=== PATIENT | male | born 1985 | race Caucasian/White ===

== ENCOUNTER 2022-02-27 06:17 | Day surgery (SDC) | payer OTHER, SELFPAY ==
[2022-02-27 06:38] VITALS: BP 118/78; PULSE 75; RESP 16; TEMP 36.5; O2SAT 96; BMI 28.8
[2022-02-27] MEDS: ETHYL CHLORIDE 116 ML SPRAY 1 APPLIC TOPICAL (07:03)
[2022-02-27] MEDS: SODIUM CHLORIDE 0.9 % (FLUSH) 10 ML SYRINGE IVF (07:05)
[2022-02-27] MEDS: LACTATED RINGERS 1000 ML 1,000 ML 100 ML IV (07:05)
--- NOTE | 2022-02-27 09:13 | PM.GSPRC ---
Operative Note Date of procedure: 02/27/22 Type of Procedure: Excision intramuscular lipoma measuring 10 x 12 x 4 cm Procedure Description: After discussing the risks and benefits of the procedure, the patient signed informed consent.? The operative site was marked and the patient was brought to the operating room and placed on the operating table in supine position.? Care was taken to pad the patient's pressure points.?? The patient was then given sedation by anesthesia.?? The operative site was then prepped and draped in the usual sterile fashion.? A time-out was then performed. Local anesthetic was injected into the skin and subcutaneous tissues overlying the planned incision overlying the mass. Dissection was taken down into the subcutaneous space using cautery. The trapezius muscle was encountered. This appeared to be thinned out over the rubbery mass. I carefully incised the fascia sharply and used a right angle to spread the muscle fibers. The fatty mass was immediately noted. Using my finger I was able to freely bluntly dissect out the mass circumferentially within the muscle. A small bleeding vessel on the muscle fibers was controlled with suture ligation. There was a subcutaneous nerve appearing structure that ran on top of the muscle. This was spared throughout the procedure. The mass was quite large and appeared densely adherent at the lateral aspect over the shoulder joint and therefore I was able to deliver this from the incision medially to laterally. Once this was done, I then very carefully dissected, using a right angle, through the tissue at the lateral aspect which was adjacent to the AC joint to identify small capsular fibers that were adhering the mass. these were carefully divided. A small amount of fatty tissue approximately 1 cm, was left in place as it was densely adherent to the lateral shoulder/AC joint. The wound was examined for hemostasis which appeared excellent. However, because this was intramuscular, I did place Surgicel within the bed. 3-0 Vicryl was then used to reapproximate the muscle fibers which had been spread apart to facilitate the dissection. Three 0 Vicryl was then used to close the platysmal layer which had been divided at the anterior aspect of the incision. The dermis was closed with 3-0 Vicryl and 4-0 Monocryl was used to close the subcuticular layer in a running fashion. ? Sterile dressings were then applied. ? The patient was then woken and transported to the recovery area in stable condition. ? The patient tolerated the procedure well. Findings: Intramuscular fatty mass measuring up to 12 cm Anesthesia: MAC Surgeon: Debbie Lancaster MD Condition: stable Disposition: same day
[2022-02-27 09:15] VITALS: BP 107/77; PULSE 64; RESP 14; TEMP 36.6; O2SAT 97
--- NOTE | 2022-02-27 09:18 | W.ANESCHARGE ---
Anesthesia Charges Start Date/Time Anesthesia Start Date: 02/27/22 Anesthesia Start Time: 07:37 Stop Date/Time Anesthesia Stop Date: 02/27/22 Anesthesia Stop Time: 09:17 Summary Emergency: No
[2022-02-27 09:30] VITALS: BP 107/70; PULSE 62; RESP 16; O2SAT 98
[2022-02-27 09:47] VITALS: BP 114/77; PULSE 54; RESP 16; O2SAT 98
[2022-02-27 10:00] VITALS: BP 120/80; PULSE 70; RESP 16; O2SAT 98
[2022-02-27 10:16] VITALS: BP 122/85; PULSE 75; RESP 16; O2SAT 98
--- NOTE | 2022-02-27 10:53 | W.ANESCHARGE ---
Anesthesia Charges Start Date/Time Anesthesia Start Date: 02/27/22 Anesthesia Start Time: 07:37 Stop Date/Time Anesthesia Stop Date: 02/27/22 Anesthesia Stop Time: 09:17 Summary Emergency: No
== END 2022-02-27 11:05 | disposition home or self-care (01) ==
PROVIDERS: PCP Family Medicine; Visit Provider Surgery
PROC: (CPT 23073; principal; 2022-02-27 07:30)
DX: D17.22 Benign lipomatous neoplasm of skin and subcutaneous tissue of left arm (principal)
CPT/HCPCS: 23073; 00300; 00400; 88304; J1170; J2250; J2405; J2704; J3010; J7120; S0020

== ENCOUNTER 2022-07-21 11:08 | Outpatient (CLI) | payer OTHER, SELFPAY ==
[2022-07-21 12:44] LABS: Chloride* 107 mmol/L (96-114); Potassium* 4.7 mmol/L (3.6-5.1); Sodium* 144 mmol/L (135-149)
[2022-07-21 12:46] LABS: Creatinine* 0.8 mg/dL (0.5-1.5); Estimated Glomerular Filt Rate 116 ml/min
[2022-07-21 12:47] LABS: Blood Urea Nitrogen* 18 mg/dL (5-24); Calcium* 9.6 mg/dL (8.4-10.6); Carbon Dioxide* 28 mmol/L (20-32); Glucose* 78 mg/dL (60-115)
== END 2022-07-21 11:09 | disposition home or self-care (01) ==
LOC: NFLDREF 11:09
PROVIDERS: PCP Family Medicine; Visit Provider Family Medicine
DX: Z01.818 Encounter for other preprocedural examination (principal)
CPT/HCPCS: 80048

== ENCOUNTER 2022-07-25 06:20 | Day surgery (SDC) | payer OTHER, SELFPAY ==
[2022-07-25] VITALS (16 sets, daily range): BP systolic 119–140; BP diastolic 78–92; PULSE 82–105; RESP 16; TEMP 36.3–36.8; O2SAT 93–99; BMI 26.6
[2022-07-25] MEDS: LACTATED RINGERS 1000 ML 1,000 ML 100 ML IV ×2 (06:52→10:29)
[2022-07-25] MEDS: SODIUM CHLORIDE 0.9 % (FLUSH) 10 ML SYRINGE IVF (06:52)
[2022-07-25] MEDS: CEFAZOLIN 2 GM INJ IVP (08:05)
--- NOTE | 2022-07-25 08:45 | W.ANESCHARGE ---
Anesthesia Charges Start Date/Time Anesthesia Start Date: 07/25/22 Anesthesia Start Time: 07:49 Stop Date/Time Anesthesia Stop Date: 07/25/22 Anesthesia Stop Time: 10:52 Summary Emergency: No
[2022-07-25] MEDS: BUPIVACAINE 0.25% 30 ML INJECTION (10:29)
--- NOTE | 2022-07-25 10:39 | PM.GSPRC ---
Operative Note Date of procedure: 07/25/22 Type of Procedure: Laparoscopic left inguinal hernia. Procedure Description: After discussing the risks and benefits of the procedure, the patient signed informed consent.? The operative site was marked and the patient was brought to the operating room and placed on the operating table in supine position.? Care was taken to pad the patient's pressure points.?? The patient was then intubated by anesthesia.?? The operative site was then prepped and draped in the usual sterile fashion.? A time-out was then performed. A curvilinear incision was made below the umbilicus. Dissection was carried down to subcutaneous tissue until the anterior rectus fascia was encountered. This was incised off the midline. The rectus muscles were then retracted exposing the posterior fascia. A space maker port with a dissecting balloon was then introduced. The preperitoneal space was inflated under direct vision. The balloon was then removed and the preperitoneal space insufflated. On inspection there was evidence of a large peritoneal tear and air within the abdomen. The decision was made to then convert to a total abdominal peritoneal approach. Dissection continued on the left side. The peritoneum was partially dissected away from the anterior abdominal wall by the balloon dissection. A midline 5 mm port was placed within the preperitoneal space to help assist with dissection and an addition left lateral 5 mm port was placed under direct visualization. The peritoneum was then dissected down with blunt dissection away from the anterior abdominal wall. The inguinal canal cord structures were identified, as well as the hernia defect, consistent with an indirect. Dissection was carried medially and the pubic bone was identified and cleared. Once the peritoneum was completely dissected down a large Bard 3D mesh was used for the appropriate side. Three tacks were placed medially just above the pubic bone and a single tacked laterally to hold the mesh in place. Care was taken not to injure the epigastric vessels. The preperitoneal 5 mm port was then removed and repositioned within the abdomen on the right lateral side. A interlocking V stitch was used to intracorporeally suture the peritoneal defect. Once this was done the mesh was completely covered with the peritoneum. The ports were then removed under direct visualization. The anterior fascial defect was closed with an 0 Vicryl stitch. The umbilical incision was closed in layers with interrupted 3 0 Vicryl and running 4-0 Monocryl suture. The other incisions were closed with interrupted 4-0 Monocryl suture. Sterile dressings were then applied. The scrotum was examined to ensure that both testicles were down. Instrument sponge and needle counts were correct at the end of the case. Findings: Left indirect hernia. Anesthesia: GETA Surgeon: Tatianna Sandoval MD Estimated blood loss (mL): 15 Condition: stable Disposition: same day
--- NOTE | 2022-07-25 11:06 | W.ANESCHARGE ---
Anesthesia Charges Start Date/Time Anesthesia Start Date: 07/25/22 Anesthesia Start Time: 07:49 Stop Date/Time Anesthesia Stop Date: 07/25/22 Anesthesia Stop Time: 10:52 Summary Emergency: No
[2022-07-25] MEDS: fentaNYL 100 MCG/2 ML inj 50 MCG IVP ×2 (11:11→11:21)
[2022-07-25] MEDS: ACETAMINOPHEN 500 MG TABLET PO (11:48)
[2022-07-25] MEDS: KETOROLAC 15 MG/ML inj IVP (11:56)
== END 2022-07-25 13:20 | disposition home or self-care (01) ==
PROVIDERS: PCP Family Medicine; Visit Provider Surgery
PROC: (CPT 49650; principal; 2022-07-25 07:30)
DX: K40.30 Unilateral inguinal hernia, with obstruction, without gangrene, not specified as recurrent (principal)
CPT/HCPCS: 49505; 00830; 00860; A9270; C1781; J0690; J1100; J1170; J1885; J2250; J2405; J2704; J3010; J3490; J7120

== ENCOUNTER 2024-12-16 14:00 | Outpatient (CLI) | payer BC, SELFPAY ==
--- NOTE | 2024-12-23 12:20 | W.PM.SLEEP ---
Sleep Study Details Details Interpreting Provider: Orion Date of Sleep Study: 12/16/24 Sleep Study Details: STUDY TYPE:? Home unattended ? BMI:? 25.8 ORDERING PROVIDER:? Nery INDICATION:? Concerned about sleep apnea ? SLEEP SUMMARY:? 397 minutes monitored RESPIRATORY SUMMARY:? AHI 7.1 Low oxygen 81 2.5% of study oxygen less than 90% Snoring 97.5% PERIODIC LIMB MOVEMENTS OF SLEEP:? Not recorded CARDIAC:? Range 54-104, mean 67.7 beats per minute IMPRESSION:? Mild obstructive sleep apnea RECOMMENDATION: Treatment options is symptomatic include CPAP, possibly positional therapy, dental appliance and/or airway expansion surgery.
== END 2024-12-16 14:01 | disposition home or self-care (01) ==
PROVIDERS: PCP Family Medicine; Visit Provider Family Medicine
DX: G47.33 Obstructive sleep apnea (adult) (pediatric) (principal)
CPT/HCPCS: 95806